=== PATIENT | male | born 1985 | race Asian ===

== ENCOUNTER 2021-09-01 16:42 | Emergency (ER) | payer MEDICAID ==
[2021-09-01] MEDS ORDERED: CLINDAMYCIN 600 MG/50 ML 50 ML IV ONE (17:00)
--- NOTE | 2021-09-01 17:01 | ED Physician Documentation ---
History of Present Illness - Stated complaint Stated Complaint: FACE PX - Chief complaint Chief Complaint: Heent - History obtained from History obtained from: Patient - Additonal information Additional information: A 36-year-old gentleman has had increasing facial swelling over the last couple of days. No fevers but he does feel tired today. Review of Systems Constitutional: denies: Fever, Chills Eyes: reports: Reviewed and negative Ears: reports: Reviewed and negative Nose: reports: Reviewed and negative Throat: reports: Reviewed and negative PD PAST MEDICAL HISTORY - Past Surgical History Past Surgical History: No - Present Medications Home Medications: Ambulatory Orders Medication Instructions Recorded Confirmed clindamycin HCL [Cleocin HCl] 300 mg PO QID #40 cap 09/01/21 - Allergies Allergies/Adverse Reactions: Allergies Allergy/AdvReac Type Severity Reaction Status Date / Time No Known Drug Allergies Allergy Verified 09/01/21 16:52 - Social History Does the pt smoke?: Yes Smoking Status: Current every day smoker Does the pt drink ETOH?: Yes Does the pt have substance abuse?: Yes - Immunizations Immunizations are current?: Yes - POLST Patient has POLST: No PD ED PE NORMAL - Vitals Vital signs reviewed: Yes - General General: Alert and oriented X 3, No acute distress - HEENT HEENT: PERRL, EOMI, Other (Multiple areas of dental decay, he has a large cavity in the left maxillary canine and there is some gum swelling lateral to this. I do not feel palpable abscess but he has read active reactive edema from the inferior part of the orbit down through the cheek and chin.) - Cardiac Cardiac: RRR - Neuro Neuro: Alert and oriented X 3, Normal speech Results - Vitals Vitals: Vital Signs - 24 hr 09/01/21 09/01/21 16:45 18:03 Temperature 36.5 C 36.6 C Heart Rate 98 90 Respiratory 15 14 Rate Blood Pressure 149/74 H 134/90 H O2 Saturation 98 98 Oxygen O2 Source Room air - Rads (name of study) CT of the face without discrete drainable abscess. Does have sinusitis on the contralateral side and facial infection. Radiology: EMP read contemporaneously PD MEDICAL DECISION MAKING - ED course ED course: 36-year-old gentleman with facial cellulitis related to a cavity. No palpable abscess on exam and a CT done to look for deep abscess that might be amenable to drainage and none was found. He was administered IV clindamycin here and dis cussed the need for dental follow-up and close return precautions. Departure - Departure Disposition: 01 Home, Self Care Clinical Impression: Facial cellulitis Condition: Good Record reviewed to determine appropriate education?: Yes Instructions: ED Cellulitis Facial Prescriptions: clindamycin HCL [Cleocin HCl] 300 mg PO QID #40 cap Comments: I sent your prescriptions electronically to [facility]. Follow-up with your dentist as soon as possible. Return if worsening. As discussed, CT was done without drainable fluid collection or abscess. Discharge Date/Time: 09/01/21 18:03
[2021-09-01] MEDS ORDERED: IOVERSOL 320 100 ML VIAL IVP ONE ×2 (17:12→17:28)
--- NOTE | 2021-09-01 17:43 | CT Report ---
PROCEDURE: MAXILLOFACIAL W INDICATIONS: facial infection, ?abscess CONTRAST: IV CONTRAST: Optiray 320 ml: 100 PO CONTRAST: *NO PO CONTRAST TECHNIQUE: After the administration of intravenous contrast, 3.0 mm axial sections acquired from the mid-neck to the frontal sinuses, with coronal reformatting. For radiation dose reduction, the following was use d: automated exposure control, adjustment of mA and/or kV according to patient size. COMPARISON: None. FINDINGS: Image quality: Excellent. Soft tissues: Soft tissue swelling of the left cheek can be seen. No focal drainable abscess is seen. Vascular: Visualized vascular structures appear patent throughout. Bony vascular foramina and canal s appear normal. Bones: Facial bones appear intact, without fractures, erosions, or destruction. Visualized portions of the skull base and auditory canals also appear normal. At least one carious tooth can be seen involving the left posterior mandibular molar. No no periapica l lucency is seen to suggest dental abscess. Sinuses: There is at least moderate mucosal thickening seen within the maxilla sinuses, left worse th an right. Relatively mature can be seen within the right maxillary sinus. Moderate mucosal thickening is seen i nvolving the anterior ethmoid air cells. Within the inferomedial frontal lobes, mild to moderate muco jane thickening is seen. The ostiomeatal complexes are completely opacified and are demineralized. Min imal leftward nasal septal deviation is seen. IMPRESSION: Generalized LEFT cheek soft tissue swelling is seen, without a drainable abscess. Underlying at least moderate paranasal sinus disease is seen. Frothy material can be seen within the RIGHT maxillary sinus, which is commonly observed in patients with acute sinusitis. Reviewed by: Kody Alvarez MD on 09/01/2021 4:41 PM [facility] Approved by: Kody Alvarez MD on 09/01/2021 4:41 PM [facility] Station ID: [id number]
[2021-09-01] MEDS ORDERED: HYDROcod/ACET 5/325 Prepack 4 PO STA (17:51)
[2021-09-01 18:08] VITALS: BP 134/90
== END 2021-09-01 18:03 | disposition home or self-care (01) ==
LOC: ED 16:42
DX: L03.211 Cellulitis of face (principal); F17.200 Nicotine dependence, unspecified, uncomplicated
CPT/HCPCS: 36415; 70487; 96374; 99282; 99284; Q9967

== ENCOUNTER 2023-04-15 18:31 | Emergency (ER) | payer MEDICAID ==
[2023-04-15] MEDS ORDERED: ONDANSETRON 4 MG/2 ML VIAL IVP STA ×2 (18:55→20:34)
[2023-04-15] MEDS ORDERED: SODIUM CHLORIDE 0.9% 1,000 ML IV STA (18:56)
[2023-04-15 18:59] VITALS: O2SAT 100
[2023-04-15 19:08] LABS: BASOPHILS % (AUTO) 0.5 %; EOSINOPHILS # (AUTO) 0.1 10^3/uL (0.0-0.7); EOSINOPHILS % (AUTO) 0.9 %; HCT - HEMATOCRIT 49.4 % (42.0-52.0); HGB - HEMOGLOBIN 16.8 g/dL (14.0-18.0); LYMPHOCYTES # (AUTO) 0.9 10^3/uL (1.5-3.5); LYMPHOCYTES % (AUTO) 11.5 %; MEAN CORPUSCULAR HEMOGLOBIN 30.2 pg (27.0-31.0); MEAN CORPUSCULAR VOLUME 88.8 fL (80.0-94.0); MEAN PLATELET VOLUME 10.4 fL (7.4-11.4); MONOCYTES # (AUTO) 0.3 10^3/uL (0.0-1.0); MONOCYTES % (AUTO) 3.9 %; NEUTROPHILS # (AUTO) 6.2 10^3/uL (1.5-6.6); NEUTROPHILS % (AUTO) 82.8 %; PLT - PLATELET COUNT 221 10^3/uL (130-450); RED BLOOD COUNT 5.56 10^6/uL (4.70-6.10); RED CELL DISTRIBUTION WIDTH 12.2 % (12.0-15.0); WHITE BLOOD COUNT 7.5 x10^3/uL (4.8-10.8)
[2023-04-15 19:13] LABS: INR 1.1 (0.8-1.2); PT - PROTHROMBIN TIME 12.3 secs (9.9-12.6)
--- NOTE | 2023-04-15 19:16 | ED Physician Documentation ---
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 At 1pm he chewed and then spit out a mushroom which she has identified as Lorne Kern. Within an hour of ingestion he began having some abdominal cramping nausea and vomiting. No fevers or diarrhea. He denies any pertinent past medical history. Takes no prescribed medications. On presentation to the emergency department he is alert though uncomfortable appearing. He is holding an nausea bag. Patient denies that this was intentional poisoning. States that tasting the mushrooms is a part of the process of mushroom identification and he has never had a problem with this in the past. Review of Systems Cardiac: reports: Reviewed and negative Respiratory: reports: Reviewed and negative GI: reports: Abdominal Pain, Nausea, Vomiting : reports: Reviewed and negative Skin: reports: Reviewed and negative Musculoskeletal: reports: Reviewed and negative PD PAST MEDICAL HISTORY - Past Surgical History Past Surgical History: No - Present Medications Home Medications: Ambulatory Orders Medication Instructions Recorded Confirmed Ondansetron Odt [Zofran] 4 mg TL Q6H PRN #10 tablet 04/15/23 - Allergies Allergies/Adverse Reactions: Allergies Allergy/AdvReac Type Severity Reaction Status Date / Time No Known Drug Allergies Allergy Verified 04/15/23 18:48 - Social History Does the pt smoke?: Yes Smoking Status: Current every day smoker Does the pt drink ETOH?: Yes Does the pt have substance abuse?: Yes - Immunizations Immunizations are current?: Yes - POLST Patient has POLST: No PD ED PE NORMAL - General General: Alert and oriented X 3. No: No acute distress (Appears uncomfortable) - HEENT HEENT: PERRL - Neck Neck: Supple, no meningeal sign - Cardiac Cardiac: RRR - Respiratory Respiratory: No respiratory distress - Abdomen Abdomen: Normal bowel sounds, Soft, Non tender - Derm Derm: Normal color, Warm and dry, No rash - Extremities Extremities: No deformity - Neuro Neuro: Alert and oriented X 3, dye feeder 2-12 intact Eye Opening: Spontaneous Motor: Obeys Commands Verbal: Oriented GCS Score: 15 Results - Vitals Vitals: Vital Signs - 24 hr 04/15/23 04/15/23 18:48 19:21 Temperature 36 C L 36.8 C Heart Rate 92 73 Respiratory 18 20 Rate Blood Pressure 131/78 H 121/85 H O2 Saturation 100 100 Oxygen O2 Source Room air - Labs Labs: Laboratory Tests 04/15/23 04/15/23 04/15/23 19:00 19:00 19:00 WBC 7.5 RBC 5.56 Hgb 16.8 Hct 49.4 MCV 88.8 MCH 30.2 MCHC 34.0 RDW 12.2 Plt Count 221 MPV 10.4 Neut # (Auto) 6.2 Lymph # (Auto) 0.9 L [place] # (Auto) 0.3 Eos # (Auto) 0.1 Baso # (Auto) 0.0 Absolute Nucleated RBC 0.00 Nucleated RBC % 0.0 PT 12.3 INR 1.1 Sodium 138 Potassium 4.1 Chloride 100 L Carbon Dioxide 29 Anion Gap 9.0 BUN 18 Creatinine 1.1 Estimated GFR (MDRD) 74 L Glucose 128 H Calcium 10.5 H Total Bilirubin 0.5 AST 27 ALT 24 Alkaline Phosphatase 97 Total Protein 8.1 Albumin 5.1 Globulin 3.0 Albumin/Globulin Ratio 1.7 Lipase 22 PD Medical Decision Making - ED course Complexity details: reviewed results, re-evaluated patient, d/w patient ED course: 38-year-old male presents emergency department for evaluation of nausea and vomiting. At 1 PM today he chewed a mushroom which he identified as rubroboletus gonzalez. Within the hour he began having nausea and vomiting and presented to the emergency department appearing very uncomfortable though there were no worrisome vital sign abnormalities. We initially ordered screening labs including liver function tests IV IV fluids and Zofran 1900: I did speak with [facility] [place] poison control. They described this mushroom as a GI irritant typically causing nausea vomiting and diarrhea. Care is symptomatic only. We are to return the phone call if he has any worrisome vital sign changes or significant laboratory abnormalities. 2030: Patient's labs have been reviewed and showed no acute worrisome abnormalities. Normal hemogram. Electrolytes without worrisome derangement. LFTs are unremarkable. I spoke with patient he felt his symptoms were better and he is now tolerating sips of clear liquids. I discussed with him that the mushroom he chewed is mostly a GI irritant but does not cause liver dysfunction. Care is symptomatic. Given marked improvement in symptoms he will be discharged with a prescription for Zofran the recommendation for clear liquids at home over the next 24 to 48 hours. We did discuss the usual emergent return precautions for worsening symptoms such as uncontrolled vomiting, bloody di arrhea, jaundice difficulty breathing and/or chest pain. Departure - Departure Disposition: 01 Home, Self Care Clinical Impression: Nausea and vomiting Qualifiers: Vomiting type: unspecified Qualified Code(s): R11.2 - Nausea with vomiting, unspecified Mushroom poisoning Qualifiers: Encounter type: initial encounter Injury intent: undetermined intent Qualified Code(s): T62.0X4A - Toxic effect of ingested mushrooms, undetermined, initial encounter Condition: Stable Record reviewed to determine appropriate education?: Yes Prescriptions: Ondansetron Odt [Zofran] 4 mg TL Q6H PRN #10 tablet PRN Reason: Nausea / Vomiting Comments: You chewed then spit out a mild sure this afternoon and shortly thereafter began having nausea and vomiting. The mushroom that you identified was discussed with [facility] [place] poison control. This mushroom acts mostly as a GI irritant but does not cause liver toxicity or cardiac side effects. I sent a prescription for zofran to [facility] to use for nausea In general over the next several days you can expect to be nauseated and perhaps some that diarrhea. I recommend that you use the Zofran to help with the nausea and vomiting. Take frequent sips of clear liquids. If at any point you develop worsening symptoms, have jaundice or yellowing of the skin, black or bloody stools, uncontrolled vomiting or severe dehydration please return to the ER for repeat evaluation. Forms: PCP List
[2023-04-15 19:18] LABS: ALBUMIN 5.1 g/dL (3.2-5.5); ALBUMIN/GLOBULIN RATIO 1.7 (1.0-2.2); BILIRUBIN,TOTAL 0.5 mg/dL (0.2-1.0); CALCIUM 10.5 mg/dL (8.5-10.3); CREATININE 1.1 mg/dL (0.6-1.3); POTASSIUM 4.1 mmol/L (3.5-4.5); TOTAL PROTEIN 8.1 g/dL (6.4-8.9)
[2023-04-15] MEDS ORDERED: ONDANSETRON ODT 4 MG Prepack 2 TL PRN (20:34)
[2023-04-15 21:09] VITALS: BP 127/74
== END 2023-04-15 21:08 | disposition home or self-care (01) ==
LOC: ED 18:31
DX: T62.0X4A Toxic effect of ingested mushrooms, undetermined, initial encounter (principal); F17.200 Nicotine dependence, unspecified, uncomplicated
CPT/HCPCS: 36415; 80053; 83690; 85025; 85610; 96374; 96376; 99283